=== PATIENT | female | born 1960 | race Hispanic/Latino ===

== ENCOUNTER 2020-10-14 12:28 | Emergency (ER) | payer SELFPAY ==
[2020-10-14 13:29] LABS: Urine Blood Trace-lysed (Negative); Urine Glucose Negative (Negative); Urine Protein Negative (Negative); Urine Specific Gravity 1.015 (1.005-1.030)
[2020-10-14] MEDS ORDERED: NA CHLORIDE 0.9% 1,000 ML ONE (13:31)
[2020-10-14] MEDS ORDERED: ONDANSETRON 4 MG/2 ML VIAL ONE (13:31)
--- NOTE | 2020-10-14 13:35 | RAD REPORT ---
EXAM DESCRIPTION: CT - Head Brain Wo Cont - 10/14/2020 1:27 pm CLINICAL HISTORY: HEADACHE COMPARISON: No comparisons TECHNIQUE: Axial 5 mm thick images of the head were obtained without IV contrast. All CT scans are performed using dose optimization technique as appropriate and may include automated exposure control or mA/KV adjustment according to patient size. FINDINGS: No intracranial hemorrhage, mass, edema or shift of mid-line structures. No acute infarcti on changes seen. No abnormal extra-axial fluid collections. Ventricles are normal. Mastoid air cells and visualized portions of the paranasal sinuses are clear. No acute bony findings. IMPRESSION: Negative non-contrast CT head examination.
[2020-10-14 13:44] LABS: Protime INR 1.07
[2020-10-14 13:50] LABS: Absolute Lymphocytes (CBC) 3.2 K/uL (0.7-4.9); Basophils % 0.7 % (0-1.3); Hematocrit 39.9 % (36.0-45.0); Lymphocytes % 27.7 % (15.3-44.8); MPV 8.3 fL (7.6-11.3); RBC Red Blood Cell Count 4.55 M/uL (3.86-4.86)
[2020-10-14 13:50] LABS: Barbiturates NEGATIVE (NEGATIVE); Benzodiazepines NEGATIVE (NEGATIVE); Cocaine NEGATIVE (NEGATIVE); METHAMPHETAM NEGATIVE (NEGATIVE); Methadone NEGATIVE (NEGATIVE); Opiates NEGATIVE (NEGATIVE); Phencyclidine NEGATIVE (NEGATIVE); THC Cannibis NEGATIVE (NEGATIVE)
[2020-10-14 13:56] LABS: Urine Bacteria <20 /HPF (<20)
[2020-10-14 14:00] LABS: ALT/SGPT 258 U/L (12-78); AST/SGOT 291 U/L (15-37); Alkaline Phosphatase 162 U/L (45-117); BUN Blood Urea Nitrogen 13 mg/dL (7-18); Bicarbonate 28 mmol/L (21-32); Bilirubin Direct 0.2 mg/dL (0-0.2); Bilirubin Total 0.6 mg/dL (0.2-1.0); Glucose Level 90 mg/dL (74-106); Lipase 89 U/L (73-393); Potassium 3.4 mmol/L (3.5-5.1); Protein, Total 8.8 g/dL (6.4-8.2); Sodium Level 134 mmol/L (136-145)
--- NOTE | 2020-10-14 15:29 | RAD REPORT ---
EXAM DESCRIPTION: US - Liver Only - 10/14/2020 2:42 pm CLINICAL HISTORY: include liver please;Abd pain COMPARISON: No comparisons TECHNIQUE: Sonographic evaluation of the right upper quadrant was performed as a dedicated liver ult rasound study. FINDINGS: Gallbladder is absent. No biliary tree dilatation. Liver is normal in size. No capsule nodularity or focal liver lesion. Echogenicity is within normal r wayne. No ascites of the right upper quadrant. No splenomegaly or focal splenic finding. IMPRESSION: Unremarkable liver ultrasound.
--- NOTE | 2020-10-14 15:37 | ER ---
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 Coronavirus screen: Client denies travel out of the [place] in the last 14 days. Ebola Screen: Patient negative for fever greater than or equal to 101.5 degrees Fahrenheit, and additional compatible Ebola Virus Disease symptoms Patient denies exposure to infectious person. Patient denies travel to an Ebola-affected area in the 21 days before illness onset. No symptoms or risks identified at this time. Initial Sepsis Screen: Does the patient meet any 2 criteria? HR > 90 bpm. No. Patient's initial sepsis screen is negative. Does the patient have a suspected source of infection? No. Patient's initial sepsis screen is negative. Risk Assessment: Do you want to hurt yourself or someone else? Patient reports no desire to harm self or others. Onset of symptoms was October 14, 2020. 12:41 Method Of Arrival: Wheelchair em 12:41 Acuity: ELAN 3 em Historical: - Allergies: 12:46 No Known Allergies; em - Home Meds: 12:46 triamterene-hydrochlorothiazid 37.5-25 mg Oral cap 1 cap once daily [Active]; oxycodone em 30 mg Oral tab [Active]; cyclobenzaprine 5 mg Oral tab [Active]; trazodone 100 mg Oral tab [Active]; - PMHx: 12:46 Anxiety; Depression; Hypertension; em - PSHx: 12:46 left hip; right shoulder; em - Immunization history:: Adult Immunizations up to date. - Social history:: Smoking status: Patient reports the use of cigarette tobacco products, smokes one-half pack cigarettes per day. Screenin:56 Abuse screen: Denies threats or abuse. Denies injuries from another. Nutritional ca1 screening: No deficits noted. Tuberculosis screening: No symptoms or risk factors identified. Fall Risk IV access (20 points). Assessment: 12:56 General: Appears in no apparent distress. uncomfortable, Behavior is anxious, crying. ca1 Pain: Complains of pain in back Is chronic. Pain: Pain currently is 7 out of 10 on a pain scale. Neuro: Level of Consciousness is awake, alert, obeys commands, Oriented to person, place, time, situation, Hotel Night Auditor are equal bilaterally Moves all extremities. Gait is steady, Speech is normal, Facial symmetry appears normal, Pupils are PERRLA, Intact. Cardiovascular: Heart tones S1 S2 present Capillary refill < 3 seconds Patient's skin is warm and dry. Respiratory: Airway is patent Respiratory effort is even, unlabored, Respiratory pattern is regular, symmetrical, Breath sounds are clear bilaterally. GI: Abdomen is flat, non-distended, Bowel sounds present X 4 quads. Abd is soft and non tender X 4 quads. Reports nausea, vomiting, since this morning. : No signs and/or symptoms were reported regarding the genitourinary system. EENT: No signs and/or symptoms were reported regarding the EENT system. Derm: Skin is intact, is healthy with good turgor, Skin is pink, warm \T\ dry. Musculoskeletal: Circulation, motion, and sensation intact. Capillary refill < 3 seconds. 13:55 Reassessment: Patient appears in no apparent distress at this time. Patient and/or ca1 family updated on plan of care and expected duration. Pain level reassessed. Patient is alert, oriented x 3, equal unlabored respirations, skin warm/dry/pink. 14:57 Reassessment: Patient appears in no apparent distress at this time. Patient is alert, ca1 oriented x 3, equal unlabored respirations, skin warm/dry/pink. 15:53 Reassessment: Patient appears in no apparent distress at this time. Patient is alert, ca1 oriented x 3, equal unlabored respirations, skin warm/dry/pink. Patient states feeling better. Patient states symptoms have improved. Vital Signs: 12:41 BP 107 / 95; Pulse 110; Resp 18; Temp 98.2(O); Pulse Ox 99% on R/A; Weight 53.07 kg; em Height 5 ft. 4 in. (162.56 cm); Pain 7/10; 13:35 BP 169 / 81; Pulse 79; Resp 15 S; Pulse Ox 96% on R/A; ca1 14:57 BP 163 / 80; Pulse 80; Resp 14; Pulse Ox 99% on R/A; ca1 15:53 BP 156 / 87; Pulse 79; Resp 18 S; Pulse Ox 99% on R/A; ca1 12:41 Body Mass Index 20.08 (53.07 kg, 162.56 cm) em ED Course: 12:29 Patient arrived in ED. mr 12:45 Triage completed. em 12:46 Arm band placed on. em 12:48 Cheryl Fraga, RN is Primary Nurse. ca1 12:56 Patient has correct armband on for positive identification. Placed in gown. Bed in low ca1 position. Call light in reach. Side rails up X 1. Pulse ox on. NIBP on. Door closed. Noise minimized. Lights dimmed. Warm blanket given. 12:56 Initial lab(s) drawn, by me, held in ED. Inserted saline lock: 20 gauge in right ca1 forearm, using aseptic technique. Blood collected. 13:02 Sad[facility] Cortés [facility]C [facility]. kb 13:02 Max Iyer MD is Attending Physician. kb 13:19 Initial lab(s) drawn, sent to lab. ca1 13:27 CT Head Brain wo Cont In Process Unspecified. EDMS 14:42 Liver Only In Process Unspecified. EDMS 15:54 No provider procedures requiring assistance completed. ca1 15:57 IV discontinued, intact, bleeding controlled, No redness/swelling at site. Pressure ca1 dressing applied. Administered Medications: 13:15 Drug: NS 0.9% 1000 ml Route: IV; Rate: 1000 ml; Site: right forearm; ca1 14:15 Follow up: Response: No adverse reaction; IV Status: Completed infusion; IV Intake: ca1 1000ml 13:17 Drug: Zofran (Ondansetron) 4 mg Route: IVP; Site: left forearm; ca1 14:00 Follow up: Response: No adverse reaction; Nausea is decreased ca1 Intake: 14:15 IV: 1000ml; Total: 1000ml. ca1 Outcome: 15:36 Discharge ordered by . kb 15:57 Discharged to home ambulatory, with family. ca1 15:57 Condition: stable 15:57 Discharge instructions given to patient, Instructed on discharge instructions, follow up and referral plans. Demonstrated understanding of instructions, follow-up care. 15:58 Patient left the ED. ca1 Signatures: Dispatcher [employer] Sadie Preciado, DESTIN SINCLAIR-Sujata Contreras JohnsonNicolas, RN RN em Cheryl Fraga RN RN ca1 Corrections: (The following items were deleted from the chart) 13:19 13:19 sent to lab. ca1 ca1
--- NOTE | 2020-10-14 15:37 | EDPHYS ---
Physician Documentation [facility] [place], [place] Name: Susanna Silvestre Age: 59 yrs Sex: Female : 1960 Arrival Date: 10/14/2020 Time: 12:29 Bed 18 Private MD: ED Physician Max Iyer HPI: 10/14 13:52 This 59 yrs old Female presents to ER via Wheelchair with complaints of kb Doesn't Feel Right. 13:54 The patient complains of pain to the top of head. The patient describes the headache as kb throbbing. Onset: The symptoms/episode began/occurred last night. Associated signs and symptoms: Pertinent positives: nausea, vomiting. Severity of symptoms: At its worst the pain was moderate, in the emergency department the pain is unchanged. Headache History: Denies prior headaches. The symptoms are alleviated by nothing. the symptoms are aggravated by nothing. The patient has not experienced similar symptoms in the past. The patient has not recently seen a physician. Pt reports throbbing headache that started last night. States she drank alcohol last night, couldn't sleep so she ended up taking a sleeping pill at 1000 this morning. States she doesn't feel right. Took normal amounts of oxycodone and flexeril. Pt is tearful. States she has some nausea and vomiting this morning and "I feel something in my stomach." Pt rubbing upper abd during conversation. Pt states she has been under a lot of stress lately, started smoking 2 months ago. Was unable to tolerate medications for HTN this morning. Historical: - Allergies: 12:46 No Known Allergies; em - Home Meds: 12:46 triamterene-hydrochlorothiazid 37.5-25 mg Oral cap 1 cap once daily [Active]; oxycodone em 30 mg Oral tab [Active]; cyclobenzaprine 5 mg Oral tab [Active]; trazodone 100 mg Oral tab [Active]; - PMHx: 12:46 Anxiety; Depression; Hypertension; em - PSHx: 12:46 left hip; right shoulder; em - Immunization history:: Adult Immunizations up to date. - Social history:: Smoking status: Patient reports the use of cigarette tobacco products, smokes one-half pack cigarettes per day. ROS: 13:50 Constitutional: Negative for fever, chills, and weight loss. kb 13:50 Abdomen/GI: Positive for abdominal pain, nausea and vomiting. 13:50 Neuro: Positive for headache. 13:50 Psych: Positive for anxiety, insomnia. 13:50 All other systems are negative. Exam: 13:41 ECG was reviewed by the Attending Physician. kb 13:51 Constitutional: This is a well developed, well nourished patient who is awake, alert, kb and in no acute distress. +tearful ENT: Moist Mucous membranes Cardiovascular: Regular rate and rhythm with a normal S1 and S2. No gallops, murmurs, or rubs. No pulse deficits. Respiratory: Respirations even and unlabored. No increased work of breathing, no retractions or nasal flaring. Skin: Warm, dry with normal turgor. Normal color. MS/ Extremity: Pulses equal, no cyanosis. Neurovascular intact. Full, normal range of motion. Neuro: Awake and alert, GCS 15, oriented to person, place, time, and situation. Moves all extremities. Normal gait. 13:51 Abdomen/GI: Inspection: abdomen appears normal, Bowel sounds: normal, Palpation: soft, in all quadrants, mild abdominal tenderness, in the right upper quadrant and left upper quadrant. 13:51 Psych: Behavior/mood is pleasant, cooperative, anxious, Affect is calm, Oriented to person, place, time, Patient has no thoughts/intents to harm self or others. Vital Signs: 12:41 BP 107 / 95; Pulse 110; Resp 18; Temp 98.2(O); Pulse Ox 99% on R/A; Weight 53.07 kg; em Height 5 ft. 4 in. (162.56 cm); Pain 7/10; 13:35 BP 169 / 81; Pulse 79; Resp 15 S; Pulse Ox 96% on R/A; ca1 14:57 BP 163 / 80; Pulse 80; Resp 14; Pulse Ox 99% on R/A; ca1 15:53 BP 156 / 87; Pulse 79; Resp 18 S; Pulse Ox 99% on R/A; ca1 12:41 Body Mass Index 20.08 (53.07 kg, 162.56 cm) em MDM: 13:02 Patient medically screened. kb 13:50 Data reviewed: vital signs, nurses notes. Data interpreted: Pulse oximetry: on room air kb is 96 %. Interpretation: normal. 15:35 Counseling: I had a detailed discussion with the patient and/or guardian regarding: the kb historical points, exam findings, and any diagnostic results supporting the discharge/admit diagnosis, lab results, radiology results, the need for outpatient follow up, a family practitioner, a coffee shop aide, to return to the emergency department if symptoms worsen or persist or if there are any questions or concerns that arise at home. 10/14 13:10 Order name: Acetaminophen kb 10/14 13:10 Order name: Basic Metabolic Panel; Complete Time: 14:04 kb 10/14 13:10 Order name: CBC with Diff; Complete Time: 14:01 kb 10/14 13:10 Order name: ETOH Level; Complete Time: 14:04 kb 10/14 13:10 Order name: Hepatic Function; Complete Time: 14:04 kb 10/14 13:10 Order name: PT-INR; Complete Time: 14:07 kb 10/14 13:10 Order name: Ptt, Activated; Complete Time: 14:07 kb 10/14 13:10 Order name: Salicylate; Complete Time: 14:04 kb 10/14 13:10 Order name: Urine Drug Screen; Complete Time: 13:57 kb 10/14 13:10 Order name: CT Head Brain wo Cont; Complete Time: 13:36 kb 10/14 13:10 Order name: Acetaminophen Level; Complete Time: 14:04 EDMS 10/14 13:11 Order name: Lipase; Complete Time: 14:04 kb 10/14 13:29 Order name: Urine Dipstick-Ancillary; Complete Time: 13:36 EDMS 10/14 13:37 Order name: Urine Microscopic Only; Complete Time: 13:57 kb 10/14 13:10 Order name: EKG; Complete Time: 13:11 kb 10/14 13:10 Order name: EKG - Nurse/Tech; Complete Time: 13:34 kb 10/14 13:10 Order name: IV Saline Lock; Complete Time: 13:10 kb 10/14 13:10 Order name: Labs collected and sent; Complete Time: 13:10 kb 10/14 13:10 Order name: Urine Dipstick-Ancillary (obtain specimen); Complete Time: 13:29 kb 10/14 14:42 Order name: Liver Only; Complete Time: 15:36 EDMS EC:41 Rate is 82 beats/min. Rhythm is regular. QRS [place] is Normal. HI interval is normal at kb 132 msec. QRS interval is normal at 74 msec. QT interval is normal at 386 msec. Administered Medications: 13:15 Drug: NS 0.9% 1000 ml Route: IV; Rate: 1000 ml; Site: right forearm; ca1 14:15 Follow up: Response: No adverse reaction; IV Status: Completed infusion; IV Intake: ca1 1000ml 13:17 Drug: Zofran (Ondansetron) 4 mg Route: IVP; Site: left forearm; ca1 14:00 Follow up: Response: No adverse reaction; Nausea is decreased ca1 Disposition: 18:15 Co-signature as Attending Physician, Max Iyer MD I agree with the assessment and kdr plan of care. Disposition: 10/14/20 15:36 Discharged to Home. Impression: Abnormal results of liver function studies, Upper abdominal pain, unspecified, Headache. - Condition is Stable. - Discharge Instructions: Abdominal Pain, Adult, [id number], General Headache Without Cause, [id number]. - Medication Reconciliation Form, Thank You Letter, Antibiotic Education, Prescription Opioid Use form. - Follow up: Emergency Department; When: As needed; Reason: Worsening of condition. Follow up: Private Physician; When: 2 - 3 days; Reason: Recheck today's complaints, Continuance of care, Re-evaluation by your physician. Signatures: Dispatcher [employer] EDSC Sadie Cortés, CAR RENTAL AGENCY MANAGER-C CAR RENTAL AGENCY MANAGER-CkMax Horta MD MD kdr Munoz, Edgar, RN RN em Cheryl Fraga RN RN ca1 Corrections: (The following items were deleted from the chart) 13:19 13:10 Suicide Screening ([place]) ordered. kb ca1 13:52 13:51 Constitutional: This is a well developed, well nourished patient who is awake, kb alert, and in no acute distress. ENT: Moist Mucous membranes Cardiovascular: Regular rate and rhythm with a normal S1 and S2. No gallops, murmurs, or rubs. No pulse deficits. Respiratory: Respirations even and unlabored. No increased work of breathing, no retractions or nasal flaring. Skin: Warm, dry with normal turgor. Normal color. MS/ Extremity: Pulses equal, no cyanosis. Neurovascular intact. Full, normal range of motion. Neuro: Awake and alert, GCS 15, oriented to person, place, time, and situation. Moves all extremities. Normal gait. kb 14:42 14:06 Abdomen Limited+US.RAD.BRZ ordered. EDMS EDMS 15:58 15:36 10/14/2020 15:36 Discharged to Home. Impression: Abnormal results of liver ca1 function studies; Upper abdominal pain, unspecified; Headache. Condition is Stable. Forms are Medication Reconciliation Form, Thank You Letter, Antibiotic Education, Prescription Opioid Use. Follow up: Emergency Department; When: As needed; Reason: Worsening of condition. Follow up: Private Physician; When: 2 - 3 days; Reason: Recheck today's complaints, Continuance of care, Re-evaluation by your physician. kb
[2020-10-14 16:05] VITALS: TEMP 98.2
[2020-10-14 16:08] VITALS: O2SAT 99
[2020-10-14 16:09] VITALS: BP 156/87
== END 2020-10-14 15:58 | disposition home or self-care (01) ==
LOC: ER 12:28
DX: R94.5 Abnormal results of liver function studies (principal); R10.10 Upper abdominal pain, unspecified; F41.8 Other specified anxiety disorders; F17.210 Nicotine dependence, cigarettes, uncomplicated; I10 Essential (primary) hypertension
CPT/HCPCS: 36415; 70450; 76705; 80048; 80076; 80307; 80320; 80329; 81003; 81015; 83690; 85025; 85610; 85730; 93005; 96361; 96374; 99284; J2405; J7030

== ENCOUNTER 2020-10-28 03:35 | Inpatient (IN) | payer SELFPAY ==
[2020-10-28 04:11] LABS: Absolute Lymphocytes (CBC) 5.3 K/uL (0.7-4.9); Basophils % 1.3 % (0-1.3); Hematocrit 39.8 % (36.0-45.0); Lymphocytes % 43.4 % (15.3-44.8); MPV 7.4 fL (7.6-11.3); RBC Red Blood Cell Count 4.48 M/uL (3.86-4.86)
[2020-10-28 04:32] LABS: Protime INR 0.87
[2020-10-28 04:33] LABS: ALT/SGPT 25 U/L (12-78); AST/SGOT 18 U/L (15-37); Albumin 3.7 g/dL (3.4-5.0); Alkaline Phosphatase 110 U/L (45-117); BUN Blood Urea Nitrogen 14 mg/dL (7-18); Bicarbonate 25 mmol/L (21-32); Bilirubin Direct 0.1 mg/dL (0-0.2); Bilirubin Total 0.4 mg/dL (0.2-1.0); Glucose Level 109 mg/dL (74-106); Magnesium 2.1 mg/dL (1.8-2.4); NT PRO-BNP 311 pg/mL (<125); Potassium 3.1 mmol/L (3.5-5.1); Protein, Total 7.8 g/dL (6.4-8.2); Sodium Level 137 mmol/L (136-145); Troponin (Emerg Dept Use Only) < 0.02 ng/mL (0.0-0.045)
[2020-10-28] MEDS ORDERED: NA CHLORIDE 0.9% 1,000 ML ONE ×2 (04:37→11:12)
[2020-10-28] MEDS ORDERED: LABETALOL 20 MG/4ML SYRINGE IV ONE (04:37)
[2020-10-28] MEDS ORDERED: LORazepam 2 MG/ML VIAL ONE (04:37)
--- NOTE | 2020-10-28 04:55 | EDPHYS ---
Physician Documentation [facility] Name: Susanna Silvestre Age: 59 yrs Sex: Female : 1960 Arrival Date: 10/28/2020 Time: 03:38 Bed 15 Private MD: ED Physician Tye Frost HPI: 10/28 04:15 This 59 yrs old Female presents to ER via Wheelchair with complaints of High pkl Blood Pressure, Chest Pain, Numbness Of Face, Vomiting, Dry mouth, Breathing Difficulty. 04:15 The patient or guardian reports chest pain that is located primarily in the substernal pkl area. Onset: just prior to arrival, 1 hour(s) ago. Associated signs and symptoms: Pertinent positives: headache, shortness of breath, Anxiety and numbness in the face. The chest pain is described as a pressure. Historical: - Allergies: 03:47 No Known Allergies; iw - Home Meds: 03:47 cyclobenzaprine 5 mg Oral tab [Active]; oxycodone 30 mg Oral tab [Active]; iw triamterene-hydrochlorothiazid 37.5-25 mg Oral cap 1 cap once daily [Active]; trazodone 100 mg Oral tab [Active]; - PMHx: 03:47 Anxiety; Hypertension; Depression; iw - PSHx: 03:47 left hip; right shoulder; iw - Immunization history:: Adult Immunizations. - Social history:: Smoking status: Patient reports the use of cigarette tobacco products, smokes one pack cigarettes per day. ROS: 04:18 ENT: Negative for injury, pain, and discharge. pkl 04:18 Eyes: Positive for redness, of the left eye. 04:18 Neck: Negative for stiffness. 04:18 Cardiovascular: Positive for chest pain. 04:18 Respiratory: Positive for shortness of breath, at rest. 04:18 Abdomen/GI: Negative for abdominal pain, nausea, vomiting, and diarrhea. 04:18 Back: Negative for acute changes. 04:18 : Negative for urinary symptoms. 04:18 MS/extremity: Negative for acute changes. 04:18 Skin: Negative for rash. 04:18 Neuro: Positive for headache, Negative for altered mental status. Exam: 04:18 Head/Face: Normocephalic, atraumatic. pkl 04:18 Eyes: Conjunctiva: subconjunctival hemorrhage(s), seen in the left eye. 04:18 ENT: Exam is negative for acute changes. 04:18 Neck: Exam negative for nuchal rigidity. 04:18 Chest/axilla: Palpation: is normal. 04:18 Cardiovascular: Rate: tachycardic, actual rate is 120 bpm, Rhythm: regular. 04:18 Respiratory: the patient does not display signs of respiratory distress, Respirations: normal, Breath sounds: are clear throughout. 04:18 Abdomen/GI: Bowel sounds: normal, Palpation: abdomen is soft and non-tender, in all quadrants. 04:18 Back: Exam negative for acute changes. 04:18 : Exam negative for acute changes. 04:18 Musculoskeletal/extremity: Extremities: all appear grossly normal, with no appreciated pain with palpation. 04:18 Skin: Exam negative for rash. 04:18 Neuro: Orientation: is normal, Mentation: is normal, Cranial nerves: grossly normal, Motor: is normal. 04:18 Psych: Behavior/mood is anxious, Patient has no thoughts/intents to harm self or others. Vital Signs: 03:43 BP 175 / 105; Pulse 120; Resp 18 S; Temp 97.2; Pulse Ox 100% on R/A; Weight 45.36 kg; iw Height 5 ft. 3 in. (160.02 cm); Pain 10/10; 04:22 BP 162 / 82; Pulse 82; Resp 16; Temp 97.2; Pulse Ox 100% ; iw 03:43 Body Mass Index 17.71 (45.36 kg, 160.02 cm) iw MDM: 03:50 Patient medically screened. pkl 04:54 Data reviewed: vital signs, nurses notes, lab test result(s), EKG, radiologic studies, pkl CT scan, plain films. 10/28 03:57 Order name: Basic Metabolic Panel rr5 10/28 03:57 Order name: CBC with Diff rr5 10/28 03:57 Order name: LFT's rr10/28 03:57 Order name: Magnesium rr5 10/28 03:57 Order name: NT PRO-BNP rr5 10/28 03:57 Order name: PT-INR; Complete Time: 04:43 rr5 10/28 03:57 Order name: Troponin (emerg Dept Use Only); Complete Time: 04:48 rr5 10/28 03:57 Order name: Basic Metabolic Panel; Complete Time: 04:48 EDMS 10/28 03:57 Order name: CBC with Automated Diff; Complete Time: 04:43 EDMS 10/28 03:57 Order name: Liver (Hepatic) Function; Complete Time: 04:48 EDMS 10/28 03:57 Order name: Magnesium; Complete Time: 04:48 EDMS 10/28 03:57 Order name: NT PRO-BNP; Complete Time: 04:48 EDMS 10/28 04:12 Order name: UDS pkl 10/28 04:17 Order name: D-Dimer; Complete Time: 04:53 pkl 10/28 03:57 Order name: XRAY Chest (1 view) rr5 10/28 03:57 Order name: EKG; Complete Time: 03:57 rr5 10/28 04:54 Order name: CT Chest For PE Angio pkl 10/28 05:09 Order name: COVID-19 : Document "Date of Symptom Onset" if Symptomatic. tt3 10/28 06:31 Order name: SARS-COV-2 RT PCR EDMS / 08:28 Order name: CBC with Automated Diff EDMS / 08:28 Order name: CBC with Automated Diff EDMS / 08:28 Order name: Comprehensive Metabolic Panel EDMS / 08:28 Order name: Comprehensive Metabolic Panel EDMS / 08:28 Order name: Brain Wo Cont EDMS / 08:28 Order name: MRA Head Wo Cont EDMS / 03:57 Order name: Cardiac monitoring; Complete Time: 04:03 rr5 10/28 03:57 Order name: EKG - Nurse/Tech; Complete Time: 04:03 rr5 10/28 03:57 Order name: IV Saline Lock; Complete Time: 04:04 rr5 10/28 03:57 Order name: Labs collected and sent; Complete Time: 04:04 rr5 10/28 03:57 Order name: O2 Per Protocol; Complete Time: 04:03 rr5 10/28 03:57 Order name: O2 Sat Monitoring; Complete Time: 04:03 rr5 10/28 08:28 Order name: Heart Healthy EDMS Administered Medications: 04:20 Drug: NS 0.9% 1000 ml Route: IV; Rate: 125 ml/hr; Site: left forearm; rr5 04:20 Drug: Lopressor (metoprolol) 5 mg Route: IVP; Site: left forearm; rr5 04:22 Drug: Ativan (LORazepam) 1 mg Route: IVP; Site: left forearm; rr5 05:28 Drug: Potassium Effervescent Tablet 50 mEq Route: PO; Disposition: 10/28/20 04:55 Hospitalization ordered by Erik Clancy for Observation. Preliminary diagnosis is Chest pain. Severe headache. - Bed requested for Telemetry/MedSurg (observation). - Status is Observation. kl - Condition is Stable. - Problem is new. - Symptoms are unchanged. Signatures: Dispatcher [employer] EDMS Krissy Curiel RN RN kl Webb, Martha, RN RN mw Lam, Pin, MD MD pkFelicia Puckett RN RN iw Roque, Raymond RN RN rr5 Corrections: (The following items were deleted from the chart) 05:14 04:55 Hospitalization Ordered by Erik Clancy MD for Observation. Preliminary diagnosis is Chest pain. Severe headache. Bed requested for Telemetry/MedSurg (observation). Status is Observation. Condition is Stable. Problem is new. Symptoms are unchanged. pkl 05:38 05:09 CORONAVIRUS ordered. EDMS EDMS 16:11 05:14 10/28/2020 04:55 Hospitalization Ordered by Erik Clancy MD for Observation. kl Preliminary diagnosis is Chest pain. Severe headache. Bed requested for [facility] ER HOLD. Status is Observation. Condition is Stable. Problem is new. Symptoms are unchanged. mw 17:01 16:11 10/28/2020 04:55 Hospitalization Ordered by Erik Clancy MD for Observation. kl Preliminary diagnosis is Chest pain. Severe headache. Bed requested for Telemetry/MedSurg (observation). Status is Observation. Condition is Stable. Problem is new. Symptoms are unchanged. kl
--- NOTE | 2020-10-28 04:55 | ER ---
Nurse's Notes [facility] Name: Susanna Silvestre Age: 59 yrs Sex: Female : 1960 Arrival Date: 10/28/2020 Time: 03:38 Bed 15 Private MD: Diagnosis: Chest pain. Severe headache Presentation: 10/28 03:43 Chief complaint: Patient's son or daughter states: started having chest pain and her BP iw was high, her mouth is dry , she woke up feeling like she couldn't breathe , lips and face are numb and tingling in her whole face , was seen here for same symptoms last week, diagnosed with anxiety attack. Coronavirus screen: At this time, the client does not indicate any symptoms associated with coronavirus-19. Ebola Screen: Patient negative for fever greater than or equal to 101.5 degrees Fahrenheit, and additional compatible Ebola Virus Disease symptoms Patient denies exposure to infectious person. Patient denies travel to an Ebola-affected area in the 21 days before illness onset. No symptoms or risks identified at this time. Initial Sepsis Screen: Does the patient meet any 2 criteria? No. Patient's initial sepsis screen is negative. Does the patient have a suspected source of infection? No. Patient's initial sepsis screen is negative. Risk Assessment: Do you want to hurt yourself or someone else? Patient reports no desire to harm self or others. Onset of symptoms was October 28, 2020. 03:43 Method Of Arrival: Wheelchair iw 03:43 Acuity: ELAN 2 iw Historical: - Allergies: 03:47 No Known Allergies; iw - Home Meds: 03:47 cyclobenzaprine 5 mg Oral tab [Active]; oxycodone 30 mg Oral tab [Active]; iw triamterene-hydrochlorothiazid 37.5-25 mg Oral cap 1 cap once daily [Active]; trazodone 100 mg Oral tab [Active]; - PMHx: 03:47 Anxiety; Hypertension; Depression; iw - PSHx: 03:47 left hip; right shoulder; iw - Immunization history:: Adult Immunizations. - Social history:: Smoking status: Patient reports the use of cigarette tobacco products, smokes one pack cigarettes per day. Screenin:02 Abuse screen: Denies threats or abuse. Denies injuries from another. Nutritional iw screening: No deficits noted. Tuberculosis screening: No symptoms or risk factors identified. Fall Risk IV access (20 points). Assessment: 04:01 General: Appears uncomfortable, Behavior is agitated, anxious. Pain: Complains of pain iw in face, chest, right arm, left arm, right leg and left leg Pain does not radiate. Pain began 2 hours ago. Is continuous. Neuro: Level of Consciousness is awake, alert, obeys commands, Oriented to person, place, time, situation, Moves all extremities. Full function. Cardiovascular: Reports chest pain, shortness of breath, Patient's skin is warm and dry. Respiratory: Respiratory effort is even, unlabored, Respiratory pattern is regular, symmetrical. Derm: Skin is intact, is healthy with good turgor. Musculoskeletal: Range of motion: intact in all extremities. 04:26 Reassessment: Patient appears in no apparent distress at this time. Patient is alert, rr5 oriented x 3, equal unlabored respirations, skin warm/dry/pink. Patient states feeling better. Patient states symptoms have improved. Vital Signs: 03:43 BP 175 / 105; Pulse 120; Resp 18 S; Temp 97.2; Pulse Ox 100% on R/A; Weight 45.36 kg; iw Height 5 ft. 3 in. (160.02 cm); Pain 10/10; 04:22 BP 162 / 82; Pulse 82; Resp 16; Temp 97.2; Pulse Ox 100% ; iw 03:43 Body Mass Index 17.71 (45.36 kg, 160.02 cm) iw ED Course: 03:38 Patient arrived in ED. es 03:46 Triage completed. iw 03:47 Arm band placed on. iw 03:50 Tye Frost MD is Attending Physician. pkl 04:00 EKG done, by ED staff, reviewed by Tye Frost MD. rr5 04:01 Felicia Rai, RN is Primary Nurse. iw 04:05 Patient has correct armband on for positive identification. Placed in gown. Bed in low rr5 position. Call light in reach. swimming pool attendant on. Pulse ox on. NIBP on. 04:05 Inserted saline lock: 20 gauge in left forearm, using aseptic technique. Blood rr5 collected. 04:05 X-ray(s) taken. rr5 04:06 Patient maintains SpO2 saturation greater than 95% on room air. rr5 04:17 XRAY Chest (1 view) In Process Unspecified. EDMS 04:54 Erik Clancy MD is Hospitalizing Provider. pkl 05:32 CT Chest For PE Angio In Process Unspecified. EDMS Administered Medications: 04:20 Drug: NS 0.9% 1000 ml Route: IV; Rate: 125 ml/hr; Site: left forearm; rr5 04:20 Drug: Lopressor (metoprolol) 5 mg Route: IVP; Site: left forearm; rr5 04:22 Drug: Ativan (LORazepam) 1 mg Route: IVP; Site: left forearm; rr5 05:28 Drug: Potassium Effervescent Tablet 50 mEq Route: PO; iw Outcome: 04:55 Decision to Hospitalize by Provider. pkl 17:01 Patient left the ED. kl Signatures: Dispatcher [employer] EDKrissy Art RN RN kl Lam, Pin, MD MD pkl Tere Lowery Irene, RN RN iw Roque, Raymond, RN RN rr5 Corrections: (The following items were deleted from the chart) 03:46 03:43 Chief complaint: Patient's son or daughter states: started having chest pain and iw her BP was high, her mouth is dry , she woke up feeling like she couldn't breathe , lips and face are numb and tingling in her whole face iw
[2020-10-28] MEDS ORDERED: POTASSIUM 25 MEQ EFFERV TAB ONE (05:29)
--- NOTE | 2020-10-28 07:36 | RAD REPORT ---
EXAM DESCRIPTION: RAD - Chest Single View - 10/28/2020 4:18 am CLINICAL HISTORY: CHEST PAIN, hypertension COMPARISON: Portable September 2015 TECHNIQUE: AP portable chest image was obtained 10/28/2020 4:18 am . FINDINGS: Lung volumes are low accentuating the interstitial pattern. No peripheral mass, consolidat ion, failure or volume overload. Heart and vasculature are normal. No measurable pleural effusion and no pneumothorax. No acute bony abnormality seen. No acute aortic findings suspected. IMPRESSION: No acute cardiopulmonary process. No significant change from comparison study.
[2020-10-28] MEDS ORDERED: ACETAMINOPHEN 500 MG TAB PO PRN (08:25)
[2020-10-28] MEDS ORDERED: ONDANSETRON 4 MG/2 ML VIAL IV PRN (08:25)
[2020-10-28] MEDS ORDERED: MORPHINE 2 MG/ML SYR IV PRN (08:25)
[2020-10-28] MEDS: NA CHLORIDE 0.9% 1,000 ML IV SCH ×2 (10:55→20:14)
--- NOTE | 2020-10-28 14:39 | RAD REPORT ---
EXAM DESCRIPTION: CT - Chest For Pe Angio - 10/28/2020 6:32 am CLINICAL HISTORY: The patient is 59 years old and is Female; CHEST PAIN TECHNIQUE: Axial computed tomographic angiography images of the chest with intravenous contrast. S agittal and coronal reformatted images were created and reviewed. This CT exam was performed using one or more of the following dose reduction techniques: automated exposure control, adjustment of t he mA and/or kV according to patient size, and/or use of iterative reconstruction technique. MIP re constructed images were created and reviewed. COMPARISON: No relevant prior studies available. FINDINGS: Pulmonary arteries: Unremarkable. No pulmonary embolism. Aorta: No acute findings. No thoracic aortic aneurysm. Lungs: Unremarkable. No mass. No consolidation. Pleural space: Unremarkable. No significant effusion. No pneumothorax. Heart: Unremarkable. No cardiomegaly. No significant pericardial effusion. No evidence of R V dysfunction. Bones/joints: Spinal fusion hardware in the upper thoracic spine. No acute fracture. No dislocation. Soft tissues: Bilateral breast implants. Lymph nodes: Unremarkable. No enlarged lymph nodes. IMPRESSION: No acute findings. Electronically signed by: Mikey Stephenson MD 10/28/2020 6:04 AM CDT Due to temporary technical issues with the PACS/Fluency reporting system, reports are being signed by the in house radiologists without review as a courtesy to insure prompt reporting. The interpreting radiologist is fully responsible for the content of the report.
--- NOTE | 2020-10-28 14:41 | RAD REPORT ---
EXAM DESCRIPTION: MRI - Brain Wo Cont - 10/28/2020 2:11 pm CLINICAL HISTORY: h/a;h/o of aneurysm, headache COMPARISON: <Comparisons> TECHNIQUE: Sagittal T1-weighted images were obtained along with axial PD, heavily T2-weighted and T2 -FLAIR images. Axial DWI and ADC mapping sequences were also obtained along with coronal heavily T2-w eighted images. FINDINGS: No intracranial hemorrhage, mass or acute infarction. There is no edema or shift of midlin e structures. No extra-axial fluid collections. Ferreira-matter/white matter junction is preserved. Signa l voids are seen as a normal finding in the major intracranial vessels. No atrophy is present and no measurable chronic ischemic change. Ventricles are normal. No tonsillar ectopia is present. There are no sella or supra sella abnormality seen. Mastoid air cells and paranasal sinuses are clear. IMPRESSION: Negative non-contrast MRI of the Brain.
--- NOTE | 2020-10-28 14:51 | RAD REPORT ---
EXAM DESCRIPTION: MRI - MRA Head Wo Cont - 10/28/2020 2:11 pm CLINICAL HISTORY: Headache, family history of aneurysm COMPARISON: CT head October 14 TECHNIQUE: Axial and coronal 3D [id number] image acquisition was performed. 3D rotational images were generated with source and reconstruction images reviewed. Horizontal and vertical axis rotation al views generated using MIP protocol. FINDINGS: Major venous sinuses are patent. Mild tortuosity of the vertebrobasilar vasculature seen. No dissection, stenosis or focal abnormality . Basilar tip is normal in appearance. No significant atherosclerotic changes identifiable. Distal internal carotid arteries show no dissection or significant stenosis. The anterior and middle cerebral artery distribution show no significant degree of atherosclerotic change. Provided history i ndicates aneurysm though none is identifiable. No vascular malformation, vasculitis or other suspicio us finding. IMPRESSION: MRA Head imaging shows no aneurysm or vascular malformation. No vasculitis, significant atherosclerotic disease or other significant intracranial finding.
[2020-10-28] MEDS ORDERED: HYDROCODONE/APAP 10/325 TAB PO PRN (18:28)
[2020-10-28] MEDS ORDERED: clonazePAM 0.5 MG TAB PO PRN (18:28)
[2020-10-28 20:23] LABS: Urine Appearance CLEAR (Clear); Urine Bilirubin NEGATIVE (Negative); Urine Blood NEGATIVE (Negative); Urine Color YELLOW (Yellow); Urine Glucose NEGATIVE (Negative); Urine Protein NEGATIVE (Negative); Urine Urobilinogen 0.2 mg/dL (0.2-1.0); Urine pH 7.5 (5.0-7.0)
[2020-10-28 20:26] LABS: Urine Microscopic Reflex NO UMIC
[2020-10-28 20:41] LABS: Barbiturates NEGATIVE (NEGATIVE); Benzodiazepines NEGATIVE (NEGATIVE); Cocaine NEGATIVE (NEGATIVE); METHAMPHETAM NEGATIVE (NEGATIVE); Methadone NEGATIVE (NEGATIVE); Opiates NEGATIVE (NEGATIVE); Phencyclidine NEGATIVE (NEGATIVE); THC Cannibis POSITIVE (NEGATIVE)
[2020-10-29 00:32] VITALS: O2SAT 94
[2020-10-29 05:55] LABS: Absolute Lymphocytes (CBC) 2.5 K/uL (0.7-4.9); Basophils % 0.9 % (0-1.3); Hematocrit 36.5 % (36.0-45.0); Lymphocytes % 25.6 % (15.3-44.8); MPV 7.7 fL (7.6-11.3); RBC Red Blood Cell Count 4.09 M/uL (3.86-4.86)
[2020-10-29 06:08] LABS: ALT/SGPT 19 U/L (12-78); AST/SGOT 16 U/L (15-37); Albumin 3.2 g/dL (3.4-5.0); Alkaline Phosphatase 78 U/L (45-117); BUN Blood Urea Nitrogen 8 mg/dL (7-18); Bicarbonate 28 mmol/L (21-32); Bilirubin Total 0.4 mg/dL (0.2-1.0); Glucose Level 107 mg/dL (74-106); Potassium 3.4 mmol/L (3.5-5.1); Sodium Level 142 mmol/L (136-145)
[2020-10-29 07:52] VITALS: BP 146/69; TEMP 97.8
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
--- NOTE | 2020-10-31 08:21 | ECHO ---
HEIGHT: 5 ft 4 in WEIGHT: 117 lb 0 oz DATE OF STUDY: 10/28/[address]: Erik Clancy MD 2-DIMENSIONAL: YES M.MODE: YES DOPPLER: YES COLOR FLOW: YES TDS: NO PORTABLE: NO DEFINITY: NO BUBBLE STUDY: NO DIAGNOSIS: CHEST PAIN RULE OUT ACS CARDIAC HISTORY: CATHERIZATION: NO SURGERY: NO PROSTHETIC VALVE: NO PACEMAKER: NO MEASUREMENTS (cm) DIASTOLIC (NORMALS) SYSTOLIC (NORMALS) IVSd 1.0 (0.6-1.2) LA Diam 2.3 (1.9-4.0) LVEF 55-60% LVIDd 2.8 (3.5-5.7) LVIDs 1.6 (2.0-3.5) %FS % LVPWd 1.2 (0.6-1.2) Ao Diam 2.6 (2.0-3.7) 2 DIMENSIONAL ASSESSMENT: RIGHT ATRIUM: NORMAL LEFT ATRIUM: NORMAL RIGHT VENTRICLE: NORMAL LEFT VENTRICLE: NORMAL TRICUSPID VALVE: MITRAL VALVE: NORMAL PULMONIC VALVE: NORMAL AORTIC VALVE: NORMAL PERICARDIAL EFFUSION: NONE AORTIC ROOT: NORMAL LEFT VENTRICULAR WALL MOTION: NORMAL DOPPLER/COLOR FLOW: SEE BELOW. COMMENTS: NORMAL LEFT VENTRICULAR EJECTION FRACTION 55-60%. NORMAL WALL MOTION. MILD TRICUSPID REGURGITATION. TECHNOLOGIST: Ian JEFF
== END 2020-10-29 10:44 | disposition home health service (06) | DRG 103 ==
LOC: ER 03:35 → ERHOLD 09:47 → OBSVTOIN 10:26 → 2ND 16:35
PROVIDERS: ADMIT Hospitalist; ATTEND Hospitalist
DX: R51.9 Headache, unspecified (principal); I10 Essential (primary) hypertension; F17.210 Nicotine dependence, cigarettes, uncomplicated; F41.9 Anxiety disorder, unspecified; Z79.899 Other long term (current) drug therapy; Z20.822 Contact with and (suspected) exposure to COVID-19
CPT/HCPCS: 36415; 70544; 70551; 71045; 71275; 80048; 80053; 80076; 80307; 81003; 83735; 83880; 84484; 85025; 85379; 85610; 93005; 93306; 96374; 96375; 99285; G0378; J2270; J7030; Q9967; U0003